=== PATIENT | male | born 1970 | race Caucasian/White ===

== ENCOUNTER 2017-10-17 08:00 | Emergency (ER) | payer OTHER ==
[2017-10-17] MEDS ORDERED: ASPIRIN 81 MG CHEWABLE CTB ONE (08:07)
[2017-10-17 08:13] VITALS: TEMP 98
[2017-10-17] MEDS ORDERED: ASPIRIN EC 81 MG PO SCH (08:15)
[2017-10-17 08:20] LABS: BASOPHILS % (AUTO) 1 % (0-3); EOSINOPHILS % (AUTO) 1 % (0-9); HEMATOCRIT 46 % (39-53); MEAN CORPUSCULAR VOLUME 89 fL (80-100); MONOCYTES % (AUTO) 11.3 % (0-12); NEUTROPHILS % (AUTO) 55.8 % (37-80)
[2017-10-17 08:45] LABS: CALCIUM 9.7 mg/dl (8.5-10.1); GLOM FILT RATE 76 mL/min (>60); POTASSIUM 4.5 mMol/L (3.5-5.1); SODIUM 137 mMol/L (136-145)
[2017-10-17 08:49] LABS: ALBUMIN 3.7 gm/dl (3.4-5.0); BILIRUBIN,DIRECT 0.1 mg/dl (0.0-0.2)
[2017-10-17 09:59] VITALS: PULSE 55; O2SAT 98
[2017-10-17 10:00] VITALS: BP 117/70; RESP 20
== END 2017-10-17 09:31 | disposition home or self-care (01) ==
LOC: ED 08:00
DX: R10.13 Epigastric pain (principal)
CPT/HCPCS: 36415; 80048; 80076; 84484; 85025; 93005; 99284